=== PATIENT | female | born 1955 | race Two or more races ===

== ENCOUNTER 2024-10-19 09:24 | Inpatient (IN) | payer MEDICARE ==
[~2024-10-19] VITALS: Ht 152.4 cm; Wt 63.8 kg
--- NOTE | 2024-10-19 09:49 | ED.PDOC ---
History of Present Illness HPI Comments This is a 69-year-old female with past medical history of hypertension, GERD, osteoporosis presented to the ED with a chief complaint of intermittent right lower quadrant abdominal pain, and constipation for last 6 weeks prior to this visit. She states that abdominal pain started 6 weeks ago which is cramping, pinching pain in the right lower pelvis, 8/10, localized without any aggravating or relieving factors and associated with constipation. She denies fever, chills, nausea, vomiting, dysuria, hematuria, altered bowel habit, recent traveling or any positive sick contact. PCP: Dr. 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 Hx Family History Family History: Reviewed,noncontributory to illness Social History Smoker: Non-Smoker Alcohol: Denies ETOH Use Drugs: Denies Drug Use Lives In: Home Constitutional: denies: chills, diaphoresis, fatigue, fever, malaise, sweats, weakness, others EENTM: denies: blurred vision, double vision, ear bleeding, ear discharge, ear drainage, ear pain, ear ringing, eye pain, eye redness, hearing loss, mouth pain, mouth swelling, nasal discharge, nose bleeding, nose congestion, nose pain, photophobia, tearing, throat pain, throat swelling, voice changes, others Respiratory: denies: cough, hemoptysis, orthopnea, SOB at rest, shortness of breath, SOB with excertion, stridor, wheezing, others Cardiovascular: denies: chest pain, dizzy spells, diaphoresis, Dyspnea on exertion, edema, irregular heart beat, left arm pain, lightheadedness, palpitations, PND, syncope, others Gastrointestinal: reports: abdominal pain, constipated; denies: abdomen distended, blood streaked bowels, diarrhea, dysphagia, difficulty swallowing, hematemesis, melena, nausea, poor appetite, poor fluid intake, rectal bleeding, rectal pain, vomiting, others Genitourinary: reports: dysuria; denies: abnormal vagina bleeding, burning, dyspareunia, flank pain, frequency, hematuria, incontinence, pain, , vagina discharge, urgency, others Neurological: denies: dizziness, fainting, headache, left sided numbness, left sided weakness, numbness, paresthesia, pre-existing deficit, right sided numbness, right sided weakness, seizure, speech problems, tingling, tremors, weakness, others Musculoskeletal: denies: back pain, gout, joint pain, joint swelling, muscle pain, muscle stiffness, neck pain, others Integumetry: denies: bruises, change in color, change in hair/nails, dryness, laceration, lesions, lumps, rash, wounds, others Allergic/Immunocompromised: denies: Difficulty Healing, Frequent Infections, Hives, Itching, others Hematologic/Lymphatic: denies: anemia, blood clots, easy bleeding, easy bruising, swollen glands, others Endocrine: denies: excessive hunger, excessive sweating, excessive thirst, excessive urination, flushing, intolerance to cold, intolerance to heat, unexplained weight gain, unexplained weight loss, others Psychiatric: denies: anxiety, bipolar disorder, depression, hopeless, panic disorder, schizophrenia, sleepless, suicidal, others Physical Exam General Appearance: Mild Distress HEENT: Normal ENT Inspection, Pharynx Normal, TMs Normal Neck: Full Range of Motion, Non-Tender, Normal, Normal Inspection Respiratory: Chest Non-Tender, Lungs Clear, No Accessory Muscle Use, No Respiratory Distress, Normal Breath Sounds Cardiovascular: No Edema, No JVD, No Murmur, No Gallop, Normal Peripheral Pulses, Regular Rate/Rhythm Breast Exam: Deferred Gastrointestinal: No Organomegaly, No Pulsatile Mass, Normal Bowel Sounds, RLQ, Tenderness Genitalia: Deferred Pelvic: Deferred Rectal: Deferred Extremities: No calf tenderness, Normal capillary refill, Normal inspection, Normal range of motion, Non-tender, No pedal edema 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 Was a procedure done?: No Differential Dx Considerations may include: Appendicitis, diverticulitis, ovarian mass, colitis, biliary colic, cholelithiasis, UTI X-Ray, Labs, Meds, VS Vital Signs Date Time Temp Pulse Resp B/P (MAP) Pulse Ox O2 Delivery O2 Flow Rate FiO2 10/19/24 09:26 98.1 128 22 161/98 94 98.1 Lab Test 10/19/24 10:01 Range/Units White Blood Count 9.3 4.4-10.8 10^3/uL Red Blood Count 4.70 4.0-5.20 10^6/uL Hemoglobin 14.1 12.2-16.2 g/dL Hematocrit 42.9 36.0-46.0 % Mean Corpuscular Volume 91.3 80.0-100.0 fL Mean Corpuscular Hemoglobin 30.1 28.0-32.0 pg Mean Corpuscular Hemoglobin Concent 33.0 32.0-36.0 g/dL Red Cell Distribution Width 13.6 11.8-14.3 % Platelet Count 557 H 140-450 10^3/uL Mean Platelet Volume 6.4 L 6.9-10.8 fL Neutrophils (%) (Auto) 70.8 37.0-80.0 % Lymphocytes (%) (Auto) 15.8 10.0-50.0 % Monocytes (%) (Auto) 11.0 0.0-12.0 % Eosinophils (%) (Auto) 1.9 0.0-7.0 % Basophils (%) (Auto) 0.5 0.0-2.0 % Neutrophils # (Auto) 6.6 1.6-8.6 10 ^3/uL Lymphocytes # (Auto) 1.5 0.4-5.4 10 ^3/uL Monocytes # (Auto) 1.0 0-1.3 10 ^3/uL Eosinophils # (Auto) 0.2 0-0.8 10 ^3/uL Basophils # (Auto) 0 0-0.2 10 ^3/uL Nucleated Red Blood Cells 0.0 % Sodium Level 143 136-145 mmol/L Potassium Level 4.1 3.5-5.1 mmol/L Chloride Level 104 98-107 mmol/L Carbon Dioxide Level 28 20-31 mmol/L Anion Gap 11 5-15 Blood Urea Nitrogen 12 9-23 mg/dL Creatinine 0.91 0.550-1.02 mg/dL Glomerular Filtration Rate Calc 68 >90 mL/min BUN/Creatinine Ratio 13.2 10.0-20.0 Serum Glucose 125 H 74-106 mg/dL Calcium Level 9.9 8.7-10.4 mg/dL Total Bilirubin 0.4 0.2-1.0 mg/dL Aspartate Amino Transferase (AST) 20 13-40 U/L Alanine Aminotransferase (ALT) 15 7-40 U/L Alkaline Phosphatase 101 46-116 U/L Total Protein 7.9 5.7-8.2 g/dL Albumin 4.8 3.2-4.8 g/dL Lipase 36 12-53 U/L X-Ray, Labs, Meds, VS Comment ORDERING PHYSICIAN: DOMI NESBTIT RESIDENT PROCEDURE(s): ABPL - CT AB PEL WO CON-NO ORAL OR IV REASON: Right lower quadrant pain ORDER NUMBER(s): [id number], ACCESSION NUMBER(s): [id number] CT CT AB PEL WO CON-NO ORAL OR IV INDICATION: Right lower quadrant pain EXAM DATE: 10/19/2024 09:47 AM COMPARISON: None RADIATION DOSE: CTDIvol: 13.67 mGy, DLP: 646.39 mGy*cm PROCEDURE: Helical CT images were obtained of the abdomen and pelvis without IV contrast Sagittal and coronal reconstructions are provided. ORAL CONTRAST: None. ADDITIONAL IMAGES / REFORMATS: None All CT scans at this medical facility are performed using dose modulation techniques as appropriate to a performed exam including the following: Automated exposure control was utilized; adjustment of the MA and/or KV according to patient size; and use of iterative reconstruction technique. FINDINGS: LUNG BASE: 6 mm RLL pulmonary nodule. LIVER: Normal. GALLBLADDER AND BILIARY TREE: No calcified gallstones. Normal caliber wall. No intra- or extrahepatic biliary ductal dilation. PANCREAS: Normal. SPLEEN: Normal. BOWEL: Nodilated.. Appendix appears atrophic. ADRENALS: Normal. KIDNEYS AND URETER: Left hydronephrosis. BLADDER: Normal. REPRODUCTIVE ORGANS: Large 15.2 x 17.0 cm multi lobulated cystic pelvic mass which appears to about the sigmoid colon... LYMPH NODES:No lymphadenopathy. PERITONEUM: Trace pelvic fluid. 3.1cm right caro abdomen mesenteric implant. VESSELS: Scattered atherosclerotic calcifications are noted. RETROPERITONEUM: Normal. ABDOMINAL WALL: Normal. BONES: Scattered osseous degenerative changes are noted. IMPRESSION: Moderate left hydronephrosis secondary to a large 15.2 x 17.0 cm multi lobulated cystic pelvic mass which appears to about the sigmoid colon.. 3.1cm right caro abdomen mesenteric implant. This can be seen with metastatic disease. This is incompletely evaluated without contrast. 6 mm RLL pulmonary nodule. Images Reviewed?: Images reviewed and evaluated by me Time of 1ST Reevaluation: 11:00 Reevaluation 1ST: Unchanged Patient Education/Counseling: Diagnosis, Treatment Family Education/Counseling: Diagnosis, Treatment Comments This is a 69 years old female presented to the ER with a chief complaint of intermittent right lower quadrant pain and constipation for 6 weeks. Initial physical examination demonstrated mild tenderness and mass like structure in the right lower quadrant. CT abdomen pelvis without contrast demonstrated Moderate left hydronephrosis secondary to a large 15.2 x 17.0 cm multi lobulated cystic pelvic mass which appears to about the sigmoid colon with rt caro-abdomen mesenteric implant. Discussed the imaging results and the blood works with the patient and her The patient will be admitted for further evaluation and management of right pel deepthi mass. SEPSIS Sepsis Screen Date sepsis recognized/suspect: Oct 19, 2024 Time Sepsis recognized/suspect: 930 Recent Procedure: No (T) On Antibiotic Therapy: No Respiratory Rate >20: No Heart Rate >90: Yes (125) Temp<36 C (96.8 F) or >38.3 C: No SBP <90 or MAP <65 mmHG: No New Acute Mental Status Change: No Is the patient on CPAP, BIPAP,: No Physician Orders Urinalysis (10/19/24 09:47) Ct Ab Pel Wo Con-No Oral Or Iv (10/19/24 09:47) Carcinoembryonic Antigen (10/19/24 11:10) Carbohydrate Antigen 19-9 (10/19/24 ) Ca 125 (Serial) (10/19/24 11:10) Vital Signs Date Time Temp Pulse Resp B/P (MAP) Pulse Ox O2 Delivery O2 Flow Rate FiO2 10/19/24 09:26 98.1 128 22 161/98 94 98.1 Laboratory Tests Test 10/19/24 10:01 White Blood Count 9.3 10^3/uL (4.4-10.8) Departure 1 Departure Time of Disposition: 11:43 Impression: Primary Impression: Pelvic mass Additional Impression: Hydronephrosis, left Disposition: 09 ADMITTED INPATIENT Admit to: Med Surg Condition: Guarded Critical Care Note Critical Care Time?: No Stability Stability form required: DOMI Olmedo RESIDENT Oct 19, 2024 09:49
[2024-10-19 10:18] LABS: Hematocrit 42.9 % (36.0-46.0); Hemoglobin 14.1 g/dL (12.2-16.2); Mean Corpuscular Hemoglobin 30.1 pg (28.0-32.0); Mean Corpuscular Volume 91.3 fL (80.0-100.0); Nucleated Red Blood Cells % 0.0 %
[2024-10-19 10:31] LABS: Alanine Aminotransferase 15 U/L (7-40); Alkaline Phosphatase 101 U/L (46-116); Calcium 9.9 mg/dL (8.7-10.4); Carbon Dioxide 28 mmol/L (20-31); Chloride 104 mmol/L (98-107); Potassium 4.1 mmol/L (3.5-5.1)
--- NOTE | 2024-10-19 10:31 | DVH ---
CT CT AB PEL WO CON-NO ORAL OR IV INDICATION: Right lower quadrant pain EXAM DATE: 10/19/2024 09:47 AM COMPARISON: None RADIATION DOSE: CTDIvol: 13.67 mGy, DLP: 646.39 mGy*cm PROCEDURE: Helical CT images were obtained of the abdomen and pelvis without IV contrast Sagittal and coronal reconstructions are provided. ORAL CONTRAST: None. ADDITIONAL IMAGES / REFORMATS: None All C T scans at this medical facility are performed using dose modulation techniques as appropriate to a p erformed exam including the following: Automated exposure control was utilized; adjustment of the MA and/or KV according to patient size; and use of iterative reconstruction technique. FINDINGS: LUNG BASE: 6 mm RLL pulmonary nodule. LIVER: Normal. GALLBLADDER AND BILIARY TREE: No calcified gallstones. Normal caliber wall. No intra- or extrahepatic biliary ductal dilation. PANCREAS: Normal. SPLEEN: Normal. BOWEL: Nodilated.. Appendix appears atrophic. ADRENALS: Normal. KIDNEYS AND URETER: Left hydronephrosis. BLADDER: Normal. REPRODUCTIVE ORGANS: Large 15.2 x 17.0 cm multi lobulated cystic pelvic mass which appears to about t he sigmoid colon... LYMPH NODES:No lymphadenopathy. PERITONEUM: Trace pelvic fluid. 3.1cm right caro abdomen mesenteric implant. VESSELS: Scattered atherosclerotic calcifications are noted. RETROPERITONEUM: Normal. ABDOMINAL WALL: Normal. BONES: Scattered osseous degenerative changes are noted. IMPRESSION: Moderate left hydronephrosis secondary to a large 15.2 x 17.0 cm multi lobulated cystic pelvic mass w hich appears to about the sigmoid colon.. 3.1cm right caro abdomen mesenteric implant. This can be seen with metastatic disease. This is incomp letely evaluated without contrast. 6 mm RLL pulmonary nodule.
[2024-10-19 10:32] LABS: Albumin 4.8 g/dL (3.2-4.8); Anion Gap 11 (5-15); BUN/Creatinine Ratio 13.2 (10.0-20.0); Bilirubin, Total 0.4 mg/dL (0.2-1.0); Blood Urea Nitrogen 12 mg/dL (9-23); Lipase 36 U/L (12-53); Sodium 143 mmol/L (136-145); Total Protein 7.9 g/dL (5.7-8.2)
[2024-10-19 10:35] LABS: Glucose 125 mg/dL (74-106)
[2024-10-19 15:00] LABS: Urine Protein, UAD Negative (Negative)
[2024-10-19] MEDS ORDERED: MORPHINE SULFATE INJ 2 MG/ml SYRG IV PRN (22:30)
[2024-10-19] MEDS: SODIUM CHLORIDE 0.9% 1,000 ML IV SCH (23:23)
--- NOTE | 2024-10-19 23:41 | DVHHPRES ---
History of Present Illness Resident Creating Document: VENUS STEEN RESIDENT History of Present Illness 69-year-old female past medical history of hypertension, GERD, chronic low back pain, osteoporosis presents to the ER with the complaints of right lower quadrant pain, sharp and stabbing in nature, radiates to the groin, since last 6 weeks. Denies any burning sensation, frequency or urgency in urine. She denies any chest pain, shortness of breath, fever or any other complaints. Past medical history: Hypertension, chronic low back pain, gastroesophageal reflux disease Past surgical history: Polyp removal from nose, breast implant in 2008, which was removed later. Allergies: None PCP: Dr. Betsy Luong Smoking: Never Alcohol: Never Drugs use: Never Code status: Full code Review of Systems Gastrointestinal: Abdominal Pain Allergies: Coded Allergies: Propofol (Verified Allergy, Intermediate, 10/19/24) Medications Current Medications Medications Dose Ordered Sig/Demian Route Start Time Stop Time Status Last Admin Dose Admin Sodium Chloride 10 ml Q8HR IV 10/20/24 06:00 Sodium Chloride 1,000 ml @ 60 mls/hr [id number] IV 10/19/24 22:30 Ondansetron HCl 4 mg Q4HP PRN IV 10/19/24 22:30 Morphine Sulfate 2 mg Q30M PRN IV 10/19/24 22:30 Exam Vital Signs Vital Signs Date Time Temp Pulse Resp B/P (MAP) Pulse Ox O2 Delivery O2 Flow Rate FiO2 10/19/24 22:15 97.6 83 16 148/94 (112) 96 97.6 Exam Pt is lying on bed General Appearance: Alert, Oriented X3, Cooperative, Mild distress HEENT: Atraumatic, Mucous membranes moist/pink Respiratory: Clear to auscultation, Normal air movement, No added sounds Cardiovascular: Regular rate, Normal S1, Normal S2, No murmurs Abdominal/ : Active bowel sounds, Soft, no distention, RLQ tenderness present Extremities: No edema, Normal pulses, No tenderness/swelling Skin: No significant rash, except past surgical scars Neuro: Normal speech, sensorimotor deficits none Psych/Mental Status: Mental status NL, Mood NL Nurse was there as cutter out during examination Labs/Xrays Labs Test 10/19/24 14:46 10/19/24 11:41 10/19/24 10:01 Range/Units Urine Color Colorless Yellow Urine Clarity Clear Clear Urine pH 6.5 5.0-9.0 Urine Specific [place] 1.005 1.001-1.035 Urine Protein Negative Negative Urine Ketones Trace Negative Urine Blood Negative Negative /uL Urine Nitrite Negative Negative Urine Bilirubin Negative Negative Urine Urobilinogen Normal Negative mg/dL Urine Leukocyte Esterase Negative Negative /uL Urine RBC <1 0 - 4 /hpf Urine Microscopic WBC 0-5 /HPF Urine Squamous Epithelial Cells None seen <5 /hpf Urine Bacteria None seen None Seen /hpf Urine Glucose Normal Normal mg/dL Carcinoembryonic Antigen 1.57 <=5.0 ng/mL White Blood Count 9.3 4.4-10.8 10^3/uL Red Blood Count 4.70 4.0-5.20 10^6/uL Hemoglobin 14.1 12.2-16.2 g/dL Hematocrit 42.9 36.0-46.0 % Mean Corpuscular Volume 91.3 80.0-100.0 fL Mean Corpuscular Hemoglobin 30.1 28.0-32.0 pg Mean Corpuscular Hemoglobin Concent 33.0 32.0-36.0 g/dL Red Cell Distribution Width 13.6 11.8-14.3 % Platelet Count 557 H 140-450 10^3/uL Mean Platelet Volume 6.4 L 6.9-10.8 fL Neutrophils (%) (Auto) 70.8 37.0-80.0 % Lymphocytes (%) (Auto) 15.8 10.0-50.0 % Monocytes (%) (Auto) 11.0 0.0-12.0 % Eosinophils (%) (Auto) 1.9 0.0-7.0 % Basophils (%) (Auto) 0.5 0.0-2.0 % Neutrophils # (Auto) 6.6 1.6-8.6 10 ^3/uL Lymphocytes # (Auto) 1.5 0.4-5.4 10 ^3/uL Monocytes # (Auto) 1.0 0-1.3 10 ^3/uL Eosinophils # (Auto) 0.2 0-0.8 10 ^3/uL Basophils # (Auto) 0 0-0.2 10 ^3/uL Nucleated Red Blood Cells 0.0 % Sodium Level 143 136-145 mmol/L Potassium Level 4.1 3.5-5.1 mmol/L Chloride Level 104 98-107 mmol/L Carbon Dioxide Level 28 20-31 mmol/L Anion Gap 11 5-15 Blood Urea Nitrogen 12 9-23 mg/dL Creatinine 0.91 0.550-1.02 mg/dL Glomerular Filtration Rate Calc 68 >90 mL/min BUN/Creatinine Ratio 13.2 10.0-20.0 Serum Glucose 125 H 74-106 mg/dL Calcium Level 9.9 8.7-10.4 mg/dL Total Bilirubin 0.4 0.2-1.0 mg/dL Aspartate Amino Transferase (AST) 20 13-40 U/L Alanine Aminotransferase (ALT) 15 7-40 U/L Alkaline Phosphatase 101 46-116 U/L Total Protein 7.9 5.7-8.2 g/dL Albumin 4.8 3.2-4.8 g/dL Lipase 36 12-53 U/L SEPSIS Sepsis Screen Date sepsis recognized/suspect: Oct 19, 2024 Time Sepsis recognized/suspect: 930 Recent Procedure: No (T) On Antibiotic Therapy: No Respiratory Rate >20: No Heart Rate >90: Yes (125) Temp<36 C (96.8 F) or >38.3 C: No SBP <90 or MAP <65 mmHG: No New Acute Mental Status Change: No Is the patient on CPAP, BIPAP,: No Physician Orders Admit (10/19/24 22:) Code Status (10/19/24:) Sodium Chloride Lock (Saline Lock Ns) (10/20/24 06:00) Sodium Chloride 0.9% (10/19/24 22:30) Ondansetron Hcl (Zofran) (10/19/24 22:30) Complete Blood Count (10/20/24 04:00) Comprehensive Metabolic Panel (10/20/24 04:00) Clear Liq Diet (10/20/24 Breakfast) Morphine Sulfate Injection (10/19/24 22:30) Oxygen By Nasal Cannula (10/19/24:26) Stat Ekg For Chest Pain (10/19/24:26) Notify Of Changes From Base (10/19/24 22:26) Ct Chest/Ab/Pl W Con- Iv Only (10/19/24 23:25) Vital Signs Date Time Temp Pulse Resp B/P (MAP) Pulse Ox O2 Delivery O2 Flow Rate FiO2 10/19/24 22:15 97.6 83 16 148/94 (112 96 97.6 Assessment/Plan Assessment/Plan Lower abdominal pain due to UTI due to cystitis/hydronephrosis CT abdomen and pelvis: Moderate left hydronephrosis secondary to a large 15.2 x 17.0 cm multi lobulated cystic pelvic mass which appears to about the sigmoid colon.1cm right caro abdomen mesenteric implant. This can be seen with metastatic disease. This is incompletely evaluated without contrast. 6 mm RLL p ulmonary nodule. CT abdomen pelvis with contrast ordered to further evaluate the mass Symptomatic management with morphine, IV fluid, ondansetron Consider pulmonary/GI/urology/Wilson consultation based on the CT scan with contrast findings Hyperglycemia Serum Glucose 125 HbA1c ordered Thrombocytosis Platelet count 557 Could be reactive due to possible malignancy. Monitor labs and continue further evaluation. GI prophylaxis: Pantoprazole DVT prophylaxis: Lovenox Diet: Clear liquid Goals of care discussed with the patient for more than 27 minutes: Full code status Case discussed with Dr. Perera, patient and RN Plan discussed with: Patient, Other (RN) My Orders Orders - VENUS STEEN Procedure Category Date Status Time Admit ADMIT 10/19/24 Transmitted 22:26 Code Status CODE 10/19/24 Transmitted 22:26 Sodium Chloride Lock PHA 10/20/24 In Process (Saline Lock Ns) 06:00 Sodium Chloride 0.9% PHA 10/19/24 In Process 22:30 Ondansetron Hcl PHA 10/19/24 In Process (Zofran) 22:30 Complete Blood Count LAB 10/20/24 Verified 04:00 Comprehensive LAB 10/20/24 Verified Metabolic Panel 04:00 Clear Liq Diet DIET 10/20/24 Transmitted Breakfast Morphine Sulfate PHA 10/19/24 In Process Injection 22:30 Oxygen By Nasal RT 10/19/24 Transmitted Cannula 22:26 Stat Ekg For Chest WALTER 10/19/24 In Process Pain 22:26 Notify Of Changes WALTER 10/19/24 In Process From Base 22:26 Date of Service: Oct 19, 2024 Billing Provider: URIAH PERERA MD Common Visit Codes: 75994-[id number] INP/OBS CARE (HIGH) Secondary Visit Codes: 88409-[id number] CARE PLAN 30 MINUTES VENUS STEEN Oct 19, 2024 23:40
[2024-10-20 00:50] VITALS: BP 136/71; PULSE 63; RESP 18; TEMP 98.7; O2SAT 97
[2024-10-20] MEDS: ENOXAPARIN SOD 40 MG/0.4 ML SYRINGE SC ONE (03:45)
[2024-10-20] MEDS: SODIUM CHLOR 0.9% PF (SALINE LOCK) 10ML VIAL/SYR IV SCH (06:49)
[2024-10-20 07:30] LABS: Hematocrit 41.1 % (36.0-46.0); Hemoglobin 13.7 g/dL (12.2-16.2); Mean Corpuscular Hemoglobin 30.2 pg (28.0-32.0); Mean Corpuscular Volume 90.4 fL (80.0-100.0); Nucleated Red Blood Cells % 0.0 %
[2024-10-20 07:46] LABS: Alanine Aminotransferase 15 U/L (7-40); Albumin 4.8 g/dL (3.2-4.8); Alkaline Phosphatase 95 U/L (46-116); Anion Gap 11 (5-15); BUN/Creatinine Ratio 11.4 (10.0-20.0); Calcium 9.8 mg/dL (8.7-10.4); Carbon Dioxide 27 mmol/L (20-31); Chloride 102 mmol/L (98-107); Glucose 92 mg/dL (74-106); Potassium 4.0 mmol/L (3.5-5.1); Sodium 140 mmol/L (136-145); Total Protein 7.4 g/dL (5.7-8.2)
[2024-10-20 07:47] LABS: Bilirubin, Total 0.6 mg/dL (0.2-1.0); Blood Urea Nitrogen 9 mg/dL (9-23)
[2024-10-20] MEDS: PANTOPRAZOLE 40 MG/10 ML VIAL INJ IV SCH (08:44)
[2024-10-20 09:00] VITALS: BP 141/91; PULSE 81; RESP 17; TEMP 98.7; O2SAT 95
[2024-10-20] MEDS: OMNIPAQUE 12mg/ml 500ml ORAL SOLUTION PO ONE (10:34)
[2024-10-20] MEDS: IOHEXOL 300 MG/ML 100ML BOTTLE IJ ONE (12:25)
[2024-10-20] MEDS ORDERED: LISI-275 PO (12:26)
[2024-10-20 13:00] VITALS: BP 140/84; PULSE 74; RESP 16; TEMP 98.2; O2SAT 96
--- NOTE | 2024-10-20 13:51 | DVHPN2 ---
Reviewed: Care Plan, H&P, Labs, Medications, Previous Orders, Radiology Changes from previous H/P or p: No Changes Gastrointestinal: Abdominal Pain Objective Vitals Vital Signs Date Time Temp Pulse Resp B/P (MAP) Pulse Ox O2 Delivery O2 Flow Rate FiO2 10/20/24 09:00 98.7 81 17 141/91 (108) 95 98.7 10/20/24 00:50 Room Air* 0 21 Medications Current Medications Medications Dose Ordered Sig/Demian Route Start Time Stop Time Status Last Admin Dose Admin Sodium Chloride 10 ml Q8HR IV 10/20/24 06:00 10/20/24 13:25 10 ML Sodium Chloride 1,000 ml @ 60 mls/hr [id number] IV 10/19/24 22:30 Ondansetron HCl 4 mg Q4HP PRN IV 10/19/24 22:30 Morphine Sulfate 2 mg Q30M PRN IV 10/19/24 22:30 Pantoprazole Sodium 40 mg DAILY IV 10/20/24 10:00 10/20/24 08:44 40 MG Laboratory Results Laboratory Tests 10/20/24 06:50 Chemistry Test 10/20/24 06:50 Albumin 4.8 g/dL (3.2-4.8) Calcium Level 9.8 mg/dL (8.7-10.4) Total Protein 7.4 g/dL (5.7-8.2) LFT Test 10/20/24 06:50 Alanine Aminotransferase (ALT) 15 U/L (7-40) Alkaline Phosphatase 95 U/L (46-116) Aspartate Amino Transferase (AST) 20 U/L (13-40) Total Bilirubin 0.6 mg/dL (0.2-1.0) HgA1c, TSH Test 10/20/24 06:50 Hemoglobin A1c 5.3 % A1C (<5.7) Urinalysis Test 10/19/24 14:46 Urine Color Colorless (Yellow) Urine Clarity Clear (Clear) Urine pH 6.5 (5.0-9.0) Urine Specific [place] 1.005 (1.001-1.035) Urine Protein Negative (Negative) Urine Ketones Trace (Negative) Urine Blood Negative /uL (Negative) Urine Nitrite Negative (Negative) Urine Bilirubin Negative (Negative) Urine Urobilinogen Normal mg/dL (Negative) Urine Leukocyte Esterase Negative /uL (Negative) Urine RBC <1 /hpf (0 - 4) Urine Microscopic WBC /HPF (0-5) Urine Squamous Epithelial Cells None seen /hpf (<5) Urine Bacteria None seen /hpf (None Seen) Urine Glucose Normal mg/dL (Normal) Labs and/or images reviewed: Labs reviewed by me, Image(s) reviewed by me Assessment/Plan Assessment/Plan Lower abdominal pain due to possible pelvic malignancy 15 x 17 left pelvic mass possible ovarian malignancy: Consult for OBGYN Dr. Badillo Elevated CA 19 -9 CA 125: Consult for Dr. Encinas Left hydronephrosis: Consult for Urology Dr. Odonnell Thrombocytosis platelet count 557 due to possible malignancy Time spent 70 minutes Advanced care planning time 20 minutes Patient is full code Plan discussed with: Patient My Orders Orders - PARISH KINSEY MD Procedure Category Date Status Time * Recoil Spring Winder Consultation CONS 10/20/24 Transmitted 13:45 * [facility] Financial Assistant CONS 10/20/24 Transmitted 13:45 * Urology Consult CONS 10/20/24 Verified 13:47 Date of Service: Oct 20, 2024 Billing Provider: PARISH KINSEY MD Common Visit Codes: [id number] CARE 30-74 MIN PARISH KINSEY MD Oct 20, 2024 13:51
--- NOTE | 2024-10-20 14:00 | DVH ---
Exam: CT CT CHST AB PLV W CON-ORAL IV History: GI MASS, LUNG METS Comparison Study: CT CT AB PEL WO CON-NO ORAL OR IV on DOS: 10/19/24 Technique: Multidetector CT of the chest, abdomen and pelvis was performed from lower neck to pubic s ymphysis. Intravenous contrast was administered during this examination. Axial, coronal and sagittal multiplanar reformats were performed by the technologist on a separate workstation. Radiation Dose Information: CT Dose: CTDI volume is 11.68 11.68 mGy. Dose-length product is 732.83 mGy*cm Omnipaque 300 : 85 mL Findings: Lower neck: Thyroid appears normal Lungs: No pulmonary nodules or masses Heart/Vascular Structures: Normal Lymph Nodes: No adenopathy Pleura: No pleural thickening or pleural effusions . Liver: The liver is normal in size. No focal lesions. Normal hepatic vascular enhancement. No enhanc ing intrahepatic masses Gallbladder and Biliary Tree: Unremarkable Spleen: Unremarkable Pancreas: The pancreas is normal in appearance without focal lesions or abnormal enhancement. Adrenal Glands: Unremarkable Kidneys: Kidneys demonstrate normal symmetric enhancement without focal lesions, calculi or hydroneph rosis. Bladder: Unremarkable Bowel: The stomach is grossly normal in appearance. Small bowel and colon are normal in caliber and d istribution. The appendix is not visualized; however, no secondary findings of acute appendicitis id entified. Ascites: Absent Lymphadenopathy: No mesenteric, retroperitoneal or periportal lymphadenopathy. Abdominal Wall and Mesentery: Unremarkable. Vasculature: The visualized abdominal aorta is normal in size and caliber. Abdominal and pelvic vess els demonstrate normal enhancement. Pelvic Organs: Large cystic pelvic mass posterior of the bladder measuring 17.7 cm in length 10.3 cm in AP dimension 14.4 cm in transverse dimension. Tissue density is 13.55 HU. Most likely represents a n ovarian cystic mass. Musculoskeletal: No aggressive focal bony lesions, acute fractures or dislocation. IMPRESSION: 1. Large cystic mass posterior to the bladder measuring 17.7 by 10.3 by 14.4 cm. Tissue density is 13 .55 Hounsfield units. 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 Correlate with surgical history of hysterectomy and/or oophorectomy. 2. No pulmonary nodules or masses 3. No intrahepatic masses 4. No osseous lesions. 5. Grade 1 anterior spondylolisthesis L4-5. All CT scans at this medical facility are performed using dose modulation techniques as appropriate t o a performed exam including the following: Automated exposure control was utilized; adjustment of th e MA and/or KV according to patient size; and use of iterative reconstruction technique.
[2024-10-20] MEDS: LISINOPRIL 5 MG TAB PO SCH (14:37)
[2024-10-20 15:20] VITALS: BP 146/87; PULSE 68; RESP 18; TEMP 98.1; O2SAT 93
--- NOTE | 2024-10-20 16:10 | DVHINCON2 ---
Date of service: Oct 20, 2024 Referring Physician Anila Alonso Reason for Consultation Abdominal pain back pale History of Present Illness 69-year-old female presented with commands the with complaints of abdominal pain back pain sharp and stabbing in nature in the groin for about six weeks Had a colonoscopy done a few months ago which was unremarkable Has had an ultrasound of the upper abdomen and was told possibly had GERD and was on got got treatment recently. Has complaints of fullness in the lower abdomen for few months Denied any weight loss history of complaints of chronic constipation CT scan which showed a possible large ovarian neoplasm after repeating with co sivaast Past Medical History GERD hypertension chronic low back pain Past Surgical History Polyp removal breast implants Family History: Alcoholism G8 FATHER Diabetes mellitus G8 FATHER FH: heart disease G8 MOTHER FH: lung disease G8 MOTHER Family History Unremarkable Social History Denies smoking or drinking Allergies: Coded Allergies: Propofol (Verified Allergy, Intermediate, 10/19/24) Home Meds Reported Medications Lisinopril (Lisinopril) 5 Mg Tab, 5 MG PO, TAB 10/20/24 Current Medications Current Medications Medications (Trade) Dose Ordered Sig/Demian Route PRN Reason Start Time Stop Time Status Last Admin Sodium Chloride (Saline Lock Ns) 10 ml Q8HR IV 10/20/24 06:00 10/20/24 13:25 Sodium Chloride 1,000 ml @ 60 mls/hr [id number] IV 10/19/24 22:30 Ondansetron HCl (Zofran) 4 mg Q4HP PRN IV NAUSEA / VOMITING 10/19/24 22:30 Morphine Sulfate 2 mg Q30M PRN IV FOR CHEST PAIN 10/19/24 22:30 Pantoprazole Sodium (Protonix) 40 mg DAILY IV 10/20/24 10:00 10/20/24 08:44 Lisinopril (Zestril Tablet) 5 mg DAILY PO 10/20/24 14:15 10/20/24 14:37 Acetaminophen/ Hydrocodone Bitart ([place] 5/325MG Tab) 1 tab Q4HPRN PRN PO MODERATE PAIN (4-6 PAIN SCALE) 10/20/24 14:30 Review of Systems Noncontributory Vital Signs Vital Signs Date Time Temp Pulse Resp B/P (MAP) Pulse Ox O2 Delivery O2 Flow Rate FiO2 10/20/24 14:37 140/84 10/20/24 13:00 98.2 74 16 96 98.2 10/20/24 00:50 Room Air* 0 21 Physical Exam Originally built and nourished female in no acute distress very pleasant Vitals stable Lungs clear abdominal fullness in the lower abdomen possibility of mass can not be excluded the could not see any edges but did have a definite fullness in lower quadrants Extremities no edema Neuro grossly intact He has got showed there was evidence of large ovarian mass lesion possible neoplasm Markers in the high with high CA 19 .9and C CA 125 Labs/Diagnostic Data Labs Test 10/20/24 06:50 10/19/24 14:46 10/19/24 11:41 10/19/24 10:01 Range/Units White Blood Count 9.5 4.4-10.8 10^3/uL Red Blood Count 4.54 4.0-5.20 10^6/uL Hemoglobin 13.7 12.2-16.2 g/dL Hematocrit 41.1 36.0-46.0 % Mean Corpuscular Volume 90.4 80.0-100.0 fL Mean Corpuscular Hemoglobin 30.2 28.0-32.0 pg Mean Corpuscular Hemoglobin Concent 33.4 32.0-36.0 g/dL Red Cell Distribution Width 14.0 11.8-14.3 % Platelet Count 534 H 140-450 10^3/uL Mean Platelet Volume 6.4 L 6.9-10.8 fL Neutrophils (%) (Auto) 75.6 37.0-80.0 % Lymphocytes (%) (Auto) 12.9 10.0-50.0 % Monocytes (%) (Auto) 10.3 0.0-12.0 % Eosinophils (%) (Auto) 0.9 0.0-7.0 % Basophils (%) (Auto) 0.3 0.0-2.0 % Neutrophils # (Auto) 7.2 1.6-8.6 10 ^3/uL Lymphocytes # (Auto) 1.2 0.4-5.4 10 ^3/uL Monocytes # (Auto) 1.0 0-1.3 10 ^3/uL Eosinophils # (Auto) 0.1 0-0.8 10 ^3/uL Basophils # (Auto) 0 0-0.2 10 ^3/uL Nucleated Red Blood Cells 0.0 % Sodium Level 140 136-145 mmol/L Potassium Level 4.0 3.5-5.1 mmol/L Chloride Level 102 98-107 mmol/L Carbon Dioxide Level 27 20-31 mmol/L Anion Gap 11 5-15 Blood Urea Nitrogen 9 9-23 mg/dL Creatinine 0.79 0.550-1.02 mg/dL Glomerular Filtration Rate Calc 80 >90 mL/min BUN/Creatinine Ratio 11.4 10.0-20.0 Serum Glucose 92 74-106 mg/dL Hemoglobin A1c 5.3 <5.7 % A1C Calcium Level 9.8 8.7-10.4 mg/dL Total Bilirubin 0.6 0.2-1.0 mg/dL Aspartate Amino Transferase (AST) 20 13-40 U/L Alanine Aminotransferase (ALT) 15 7-40 U/L Alkaline Phosphatase 95 46-116 U/L Total Protein 7.4 5.7-8.2 g/dL Albumin 4.8 3.2-4.8 g/dL Urine Color Colorless Yellow Urine Clarity Clear Clear Urine pH 6.5 5.0-9.0 Urine Specific [place] 1.005 1.001-1.035 Urine Protein Negative Negative Urine Ketones Trace Negative Urine Blood Negative Negative /uL Urine Nitrite Negative Negative Urine Bilirubin Negative Negative Urine Urobilinogen Normal Negative mg/dL Urine Leukocyte Esterase Negative Negative /uL Urine RBC <1 0 - 4 /hpf Urine Microscopic WBC 0-5 /HPF Urine Squamous Epithelial Cells None seen <5 /hpf Urine Bacteria None seen None Seen /hpf Urine Glucose Normal Normal mg/dL Carcinoembryonic Antigen 1.57 <=5.0 ng/mL CA 19-9 Antigen 161 H 0-35 U/mL CA 125 Antigen 205.0 H 0.0-38.1 U/mL Lipase 36 12-53 U/L Assessment 69-year-old female with abdominal pain abnormal CAT scan showing a possible ovarian neoplasm with tumor markers are a 2nd CT does not show lung Mets or liver Mets Clinical impression ovarian neoplasm Plan/Recommendation We will recommend gynecological consult further treatment accordingly Oncology consult also Thank you Dr. Ce Braun discussed with: Patient JIM VORA MD Oct 20, 2024 16:10
[2024-10-20] MEDS: HYDROcodone-ACET 5/325MG TAB PO PRN (18:57)
[2024-10-20 21:00] VITALS: BP 131/67; PULSE 82; RESP 18; TEMP 98.1; O2SAT 95
[2024-10-21 01:00] VITALS: BP 125/59; PULSE 91; RESP 18; TEMP 98.5; O2SAT 98
[2024-10-21 05:00] VITALS: BP 140/70; PULSE 65; RESP 18; TEMP 98.3; O2SAT 98
[2024-10-21 08:00] VITALS: PULSE 69; RESP 20; O2SAT 97
--- NOTE | 2024-10-21 08:46 | DVHINCON2 ---
Date of service: Oct 21, 2024 Referring Physician HOSPITALIST Reason for Consultation PELVIC MASS History of Present Illness PT IS ADMITTED FOR ABD PAIN X2 MONTHS DURATION WHICH BECAME WORST OVER THE LAST 2 DAYS. PT GIVE S SOME HX OF CONSTIPATION,NO VAG BLEEDING OR DISCHARGE.HER LAST PAP WAS MANY YRS AGO AND LST MAMMOGRAM WAS LAST YR Past Medical History BACK PAIN,HTN,DJD,GERD Past Surgical History REMOVAL OF POLYP FROM KRISTOPHER,BREAST IMPLANT WHICH WAS REMOVED Family History NA Social History ONE Patient Family History: Alcoholism G8 FATHER Diabetes mellitus G8 FATHER FH: heart disease G8 MOTHER FH: lung disease G8 MOTHER Allergies: Coded Allergies: Propofol (Verified Allergy, Intermediate, 10/19/24) Home Meds Reported Medications Lisinopril (Lisinopril) 5 Mg Tab, 5 MG PO, TAB 10/20/24 Current Medications Current Medications Medications (Trade) Dose Ordered Sig/Demian Route PRN Reason Start Time Stop Time Status Last Admin Pantoprazole Sodium (Protonix) 40 mg DAILY IV 10/20/24 10:00 10/20/24 08:44 Lisinopril (Zestril Tablet) 5 mg DAILY PO 10/20/24 14:15 10/20/24 14:37 Acetaminophen/ Hydrocodone Bitart ([place] 5/325MG Tab) 1 tab Q4HPRN PRN PO MODERATE PAIN (4-6 PAIN SCALE) 10/20/24 14:30 10/20/24 18:57 Review of Systems Constitutional: no fever, chill, weight loss HEENT: no eye pain, no hearing loss, no oral lesion, no scleral icterus Heart: no chest pain, no chest pressure Lung: no cough, no dyspnea with exertion Abdomen: see HPI : no pain with urination, normal appearing urine Musculoskeletal: no joint pain, no muscle pain Neurological: no seizure, no loss of sensation, no weakness in extremities Pysch: no depression, no anxiety Derm: no rash, no jaundice Vital Signs Vital Signs Date Time Temp Pulse Resp B/P (MAP) Pulse Ox O2 Delivery O2 Flow Rate FiO2 10/21/24 05:00 98.3 65 18 140/70 (93) 98 98.3 10/20/24 20:00 Room Air* 0 21 Physical Exam ALERT AND ORIENTED HEENT: [NL] NECK: [NL] CARDIAC: [RRR] PULMONARY: [CTA] ABDOMEN: [SOFT,ABDMOINAL FULLNESS C/W MIDLINE MASS PALPATED,NO RIGIDITY] MUSCULOSKELETAL: [NL PELVIC-EXT GENT WNL,CX NL,UTERUS NL SIZE,ADENXAL FULLNESS APPRECIATED Labs/Diagnostic Data Labs Test 10/20/24 06:50 10/19/24 14:46 10/19/24 11:41 10/19/24 10:01 Range/Units White Blood Count 9.5 4.4-10.8 10^3/uL Red Blood Count 4.54 4.0-5.20 10^6/uL Hemoglobin 13.7 12.2-16.2 g/dL Hematocrit 41.1 36.0-46.0 % Mean Corpuscular Volume 90.4 80.0-100.0 fL Mean Corpuscular Hemoglobin 30.2 28.0-32.0 pg Mean Corpuscular Hemoglobin Concent 33.4 32.0-36.0 g/dL Red Cell Distribution Width 14.0 11.8-14.3 % Platelet Count 534 H 140-450 10^3/uL Mean Platelet Volume 6.4 L 6.9-10.8 fL Neutrophils (%) (Auto) 75.6 37.0-80.0 % Lymphocytes (%) (Auto) 12.9 10.0-50.0 % Monocytes (%) (Auto) 10.3 0.0-12.0 % Eosinophils (%) (Auto) 0.9 0.0-7.0 % Basophils (%) (Auto) 0.3 0.0-2.0 % Neutrophils # (Auto) 7.2 1.6-8.6 10 ^3/uL Lymphocytes # (Auto) 1.2 0.4-5.4 10 ^3/uL Monocytes # (Auto) 1.0 0-1.3 10 ^3/uL Eosinophils # (Auto) 0.1 0-0.8 10 ^3/uL Basophils # (Auto) 0 0-0.2 10 ^3/uL Nucleated Red Blood Cells 0.0 % Sodium Level 140 136-145 mmol/L Potassium Level 4.0 3.5-5.1 mmol/L Chloride Level 102 98-107 mmol/L Carbon Dioxide Level 27 20-31 mmol/L Anion Gap 11 5-15 Blood Urea Nitrogen 9 9-23 mg/dL Creatinine 0.79 0.550-1.02 mg/dL Glomerular Filtration Rate Calc 80 >90 mL/min BUN/Creatinine Ratio 11.4 10.0-20.0 Serum Glucose 92 74-106 mg/dL Hemoglobin A1c 5.3 <5.7 % A1C Calcium Level 9.8 8.7-10.4 mg/dL Total Bilirubin 0.6 0.2-1.0 mg/dL Aspartate Amino Transferase (AST) 20 13-40 U/L Alanine Aminotransferase (ALT) 15 7-40 U/L Alkaline Phosphatase 95 46-116 U/L Total Protein 7.4 5.7-8.2 g/dL Albumin 4.8 3.2-4.8 g/dL Urine Color Colorless Yellow Urine Clarity Clear Clear Urine pH 6.5 5.0-9.0 Urine Specific [place] 1.005 1.001-1.035 Urine Protein Negative Negative Urine Ketones Trace Negative Urine Blood Negative Negative /uL Urine Nitrite Negative Negative Urine Bilirubin Negative Negative Urine Urobilinogen Normal Negative mg/dL Urine Leukocyte Esterase Negative Negative /uL Urine RBC <1 0 - 4 /hpf Urine Microscopic WBC 0-5 /HPF Urine Squamous Epithelial Cells None seen <5 /hpf Urine Bacteria None seen None Seen /hpf Urine Glucose Normal Normal mg/dL Carcinoembryonic Antigen 1.57 <=5.0 ng/mL CA 19-9 Antigen 161 H 0-35 U/mL CA 125 Antigen 205.0 H 0.0-38.1 U/mL Lipase 36 12-53 U/L Primary Diagnosis ABDOMINAL PAIN DUE TO PELVIC MASS ELEVATED CA125 AND PELVIC MASS SUSPECT OVARIAN CA Plan RECOMMEND SURGERY WITH [employer]ZING AND BORING MACHINE HELPER ONC NOHELIA NUÑEZSNFER TO [facility] DR KATE ADZING AND BORING MACHINE HELPER ONC Plan discussed with: Patient Visit Coding OBGYN Date of Service: Oct 21, 2024 Billing Provider: NORI PORTER DO CATALOGUE ILLUSTRATOR Common Visit Codes: [id number] INP/OBS CARE (HIGH) CATALOGUE ILLUSTRATOR Consultation Codes: 06877-L/U INPATIENT CONSULT (HIGH) NORI PORTER DO Oct 21, 2024 08:46
[2024-10-21 09:00] VITALS: BP 157/91; PULSE 69; RESP 20; TEMP 97.3; O2SAT 97
--- NOTE | 2024-10-21 12:48 | DVHDS2 ---
Discharge Summary Date of Admission Oct 19, 2024 at 22:26 Date of Discharge: Oct 21, 2024 Admitting Diagnosis Abdominal pain Wounds: None Labs/Diagnostic Data: Laboratory Results Test 10/20/24 06:50 10/19/24 14:46 10/19/24 11:41 10/19/24 10:01 White Blood Count 9.5 10^3/uL (4.4-10.8) Red Blood Count 4.54 10^6/uL (4.0-5.20) Hemoglobin 13.7 g/dL (12.2-16.2) Hematocrit 41.1 % (36.0-46.0) Mean Corpuscular Volume 90.4 fL (80.0-100.0) Mean Corpuscular Hemoglobin 30.2 pg (28.0-32.0) Mean Corpuscular Hemoglobin Concent 33.4 g/dL (32.0-36.0) Red Cell Distribution Width 14.0 % (11.8-14.3) Platelet Count 534 10^3/uL (140-450) Mean Platelet Volume 6.4 fL (6.9-10.8) Neutrophils (%) (Auto) 75.6 % (37.0-80.0) Lymphocytes (%) (Auto) 12.9 % (10.0-50.0) Monocytes (%) (Auto) 10.3 % (0.0-12.0) Eosinophils (%) (Auto) 0.9 % (0.0-7.0) Basophils (%) (Auto) 0.3 % (0.0-2.0) Neutrophils # (Auto) 7.2 10 ^3/uL (1.6-8.6) Lymphocytes # (Auto) 1.2 10 ^3/uL (0.4-5.4) Monocytes # (Auto) 1.0 10 ^3/uL (0-1.3) Eosinophils # (Auto) 0.1 10 ^3/uL (0-0.8) Basophils # (Auto) 0 10 ^3/uL (0-0.2) Nucleated Red Blood Cells 0.0 % Sodium Level 140 mmol/L (136-145) Potassium Level 4.0 mmol/L (3.5-5.1) Chloride Level 102 mmol/L (98-107) Carbon Dioxide Level 27 mmol/L (20-31) Anion Gap 11 (5-15) Blood Urea Nitrogen 9 mg/dL (9-23) Creatinine 0.79 mg/dL (0.550-1.02) Glomerular Filtration Rate Calc 80 mL/min (>90) BUN/Creatinine Ratio 11.4 (10.0-20.0) Serum Glucose 92 mg/dL (74-106) Hemoglobin A1c 5.3 % A1C (<5.7) Calcium Level 9.8 mg/dL (8.7-10.4) Total Bilirubin 0.6 mg/dL (0.2-1.0) Aspartate Amino Transferase (AST) 20 U/L (13-40) Alanine Aminotransferase (ALT) 15 U/L (7-40) Alkaline Phosphatase 95 U/L (46-116) Total Protein 7.4 g/dL (5.7-8.2) Albumin 4.8 g/dL (3.2-4.8) Urine Color Colorless (Yellow) Urine Clarity Clear (Clear) Urine pH 6.5 (5.0-9.0) Urine Specific [place] 1.005 (1.001-1.035) Urine Protein Negative (Negative) Urine Ketones Trace (Negative) Urine Blood Negative /uL (Negative) Urine Nitrite Negative (Negative) Urine Bilirubin Negative (Negative) Urine Urobilinogen Normal mg/dL (Negative) Urine Leukocyte Esterase Negative /uL (Negative) Urine RBC <1 /hpf (0 - 4) Urine Microscopic WBC /HPF (0-5) Urine Squamous Epithelial Cells None seen /hpf (<5) Urine Bacteria None seen /hpf (None Seen) Urine Glucose Normal mg/dL (Normal) Carcinoembryonic Antigen 1.57 ng/mL (<=5.0) CA 19-9 Antigen 161 U/mL (0-35) CA 125 Antigen 205.0 U/mL (0.0-38.1) Lipase 36 U/L (12-53) Other Laboratory Tests 10/20/24 06:50 Brief Hx & Hospital Course: 69-year-old female came in for abdominal pain found to have 15 x 17 cm left pelvic mass possible ovarian malignancy elevated CA 19 -9-and CA [address] Encinas and OBGYN Dr. Chambers. Dr chambers transferred to [facility] for higher level of care Patient had left hydronephrosis possibly because of pressure from the mass. Urology consult pending General condition poor. Consults/Reason for consult GI Dr. Encinas [employer] Manager Dr Chambers Operations or Procedures CT abdomen pelvis without contrast Condition at Discharge: Poor Final Diagnosis/Problems List Possible left ovarian cancer Discharge Disposition: Acute Care Facility Discharge Instruct/Medications Diet: Regular Activity: Bed rest Follow Up/Referral: Follow up with the receiving hospital Medications: Continue current meds Miscellaneous Medications Lisinopril (Lisinopril), 5 MG PO, (Reported) 35 (Time taken for discharge summary 35 minutes) Discharge Statement: "Patient was advised to return to the ER or call 911 if any headaches, dizziness, shortness of breath, chest pain, abdominal pain, bleeding, fevers, or worsening of medical condition. Patient was counseled about treatment plan, medications, possible side effects, patientverbalized understanding. All questions were answered to the best of my ability. This discharge took greater then 30 minutes in planning, reviewing documentation, counseling the patient, and discussing with other team members." ASSESSMENT ASSESSMENT Hospital Course No Change Assessment Possible left ovarian cancer Date of Service: Oct 21, 2024 Billing Provider: PARISH KINSEY MD Common Visit Codes: [id number] DISCH DAY >30min PARISH KINSEY MD Oct 21, 2024 12:47
[2024-10-21] MEDS: ONDANSETRON HCL 4 MG/2 ML VIAL IV PRN (12:50)
[2024-10-21 13:00] VITALS: BP 163/91; PULSE 84; RESP 20; TEMP 97.5; O2SAT 97
[2024-10-21 17:00] VITALS: BP 141/80; PULSE 102; RESP 20; TEMP 99.8; O2SAT 95
== END 2024-10-21 19:15 | disposition short-term general hospital (02) | DRG 755 ==
LOC: ER 09:24 → OVERFLOW 22:26 → WEST WING 10-20 15:33
DX: C56.2 Malignant neoplasm of left ovary (principal); N13.30 Unspecified hydronephrosis; D75.839 Thrombocytosis, unspecified; I10 Essential (primary) hypertension; M81.0 Age-related osteoporosis without current pathological fracture; F10.20 Alcohol dependence, uncomplicated; G89.29 Other chronic pain; K21.9 Gastro-esophageal reflux disease without esophagitis; M54.50 Low back pain, unspecified; Z83.3 Family history of diabetes mellitus; Z98.82 Breast implant status; Z88.8 Allergy status to other drugs, medicaments and biological substances
CPT/HCPCS: 36415; 71260; 74176; 74177; 80053; 81001; 82378; 83036; 83690; 85025; 86301; 86304; G0378; J2405; J2470